=== PATIENT | female | born 2000 | race African-American/Black ===

== ENCOUNTER 2020-02-17 17:31 | Emergency (ER) | payer SELFPAY ==
[~2020-02-17] VITALS: Ht 162.6 cm; Wt 72.6 kg
[2020-02-17] MEDS ORDERED: diphenhdrAMINE HCL 50 MG/1 ML VL IV ONE (17:45)
[2020-02-17] MEDS ORDERED: methylPREDNISolone SOD SUCC 125 MG/2 ML VL IV ONE (17:45)
[2020-02-17] MEDS ORDERED: SODIUM CHLORIDE 0.9% 1,000 ML IV ONE (17:45)
[2020-02-17 19:01] VITALS: BP 125/75
== END 2020-02-17 20:42 | disposition home or self-care (01) ==
LOC: ER 17:31
DX: T78.40XA Allergy, unspecified, initial encounter (principal); Z91.013 Allergy to seafood; Z91.010 Allergy to peanuts; Z91.018 Allergy to other foods; X58.XXXA Exposure to other specified factors, initial encounter
CPT/HCPCS: 71045; 96361; 96374; 96375; 99284; J1200; J2930; J7030

== ENCOUNTER 2021-01-07 09:43 | Emergency (ER) | payer SELFPAY ==
[~2021-01-07] VITALS: Ht 162.6 cm; Wt 74.4 kg
[2021-01-07] MEDS ORDERED: ONDANSETRON HCL 4 MG/2 ML VIAL IV ONE (10:15)
[2021-01-07] MEDS ORDERED: SODIUM CHLORIDE 0.9% 1,000 ML IVB ONE (10:15)
[2021-01-07 11:00] LABS: Albumin 3.8 g/dL (3.4-5.0); Anion Gap 7 (5-15); Blood Alcohol < 3.0 mg/dL (0-5); Blood Urea Nitrogen 12 mg/dL (7-18); Calcium 8.9 mg/dL (8.5-10.1); Carbon Dioxide 20 mmol/L (21-32); Chloride 109 mmol/L (98-107); Glucose 110 mg/dL (74-106); Lipase 115 U/L (73-393); Potassium 3.9 mmol/L (3.5-5.1); Sodium 136 mmol/L (136-145)
[2021-01-07 11:02] LABS: Lactic Acid w/Reflex 2.1 mmol/L (0.4-2.0)
[2021-01-07 11:04] LABS: Alanine Aminotransferase 37 U/L (13-56); Alkaline Phosphatase 115 U/L (45-117); Amphetamine Screen, Urine NEGATIVE (NEGATIVE); Aspartate Aminotransferase 22 U/L (15-37); BUN/Creatinine Ratio 15.2; Barbiturate Scree,Urine NEGATIVE (NEGATIVE); Basophils # (auto) 0 10 ^3/uL (0-0.2); Basophils % (auto) 0.5 % (0.0-2.0); Benzodiazephine Screen, Urine NEGATIVE (NEGATIVE); Bilirubin, Total 0.5 mg/dL (0.2-1.0); Cannabinoid Screen, Urine POSITIVE (NEGATIVE); Cocaine Screen, Urine NEGATIVE (NEGATIVE); Eosinophils # (auto) 0 10 ^3/uL (0-0.8); Eosinophils % (auto) 0.7 % (0.0-7.0); GFR African American 118 mL/min; GFR Non-African American 98 mL/min; Hematocrit 42.8 % (36.0-46.0); Hemoglobin 14.2 g/dL (12.2-16.2); Lymphocytes # (auto) 1.2 10 ^3/uL (0.4-5.4); Lymphocytes % (auto) 19.1 % (10.0-50.0); Mean Corpuscular Hemoglobin 28.5 pg (28.0-32.0); Mean Corpuscular Hgb Conc. 33.2 g/dL (32.0-36.0); Mean Corpuscular Volume 85.8 fL (80.0-100.0); Monocytes # (auto) 0.3 10 ^3/uL (0-1.3); Monocytes % (auto) 4.7 % (0.0-12.0); Neutrophils # (auto) 4.7 10 ^3/uL (1.6-8.6); Phencyclidine Screen, Urine NEGATIVE (NEGATIVE); Red Blood Cells 4.98 10^6/uL (4.0-5.20); Red Cell Distribution Width 13.2 % (11.8-14.3); Total Protein 8.2 g/dL (6.4-8.2); White Blood Cell 6.3 10^3/uL (4.4-10.8)
[2021-01-07 11:11] LABS: Opiate Scree,Urine NEGATIVE (NEGATIVE)
[2021-01-07 11:21] LABS: Urine Bacteria NONE SEEN /hpf (None Seen); Urine Blood Negative /uL (Negative); Urine Mucus FEW (None Seen); Urine Specific Gravity 1.024 (1.001-1.035); Urine WBC 3 /hpf (0 - 5)
[2021-01-07] MEDS ORDERED: MORPHINE SULFATE INJECTION 2 MG/ML SYRG IV ONE (11:45)
[2021-01-07 12:19] VITALS: BP 110/68
[2021-01-07] MEDS ORDERED: ONDA-144 PO (13:08)
[2021-01-07] MEDS ORDERED: DICY10CA GT (13:08)
== END 2021-01-07 13:18 | disposition home or self-care (01) ==
LOC: ER 09:43
DX: K29.20 Alcoholic gastritis without bleeding (principal); J45.909 Unspecified asthma, uncomplicated; F12.10 Cannabis abuse, uncomplicated; Z91.018 Allergy to other foods
CPT/HCPCS: 36415; 74176; 80053; 80307; 80320; 81001; 81025; 83605; 83690; 85025; 96361; 96374; 96375; 99284; J2270; J2405

== ENCOUNTER 2023-03-10 17:33 | Emergency (ER) | payer MEDICAID ==
[~2023-03-10] VITALS: Ht 162.6 cm; Wt 87.2 kg
[~2023-03-10 17:33] MED LIST: DICY10CA GT; ONDA-144 PO
[2023-03-10 18:03] VITALS: BP 102/63; PULSE 73; RESP 18; O2SAT 97
[2023-03-10 19:29] LABS: Basophils # (auto) 0.2 10 ^3/uL (0-0.2); Basophils % (auto) 3.6 % (0.0-2.0); Eosinophils # (auto) 0.2 10 ^3/uL (0-0.8); Eosinophils % (auto) 3.4 % (0.0-7.0); Hematocrit 43.2 % (36.0-46.0); Hemoglobin 14.1 g/dL (12.2-16.2); Lymphocytes # (auto) 2.3 10 ^3/uL (0.4-5.4); Lymphocytes % (auto) 48.3 % (10.0-50.0); Mean Corpuscular Hemoglobin 28.5 pg (28.0-32.0); Mean Corpuscular Hgb Conc. 32.7 g/dL (32.0-36.0); Monocytes # (auto) 0.2 10 ^3/uL (0-1.3); Monocytes % (auto) 4.4 % (0.0-12.0); Neutrophils % (auto) 40.3 % (37.0-80.0); Nucleated Red Blood Cells % 0.1 %; Red Blood Cells 4.96 10^6/uL (4.0-5.20); Red Cell Distribution Width 13.7 % (11.8-14.3); White Blood Cell 4.8 10^3/uL (4.4-10.8)
[2023-03-10 19:40] LABS: Chloride 107 mmol/L (98-107); Sodium 140 mmol/L (136-145)
[2023-03-10 19:41] LABS: Calcium 9.9 mg/dL (8.5-10.1)
[2023-03-10 19:46] LABS: BUN/Creatinine Ratio 10.4 (10.0-20.0); Blood Urea Nitrogen 8 mg/dL (9-23); Glucose 86 mg/dL (74-106)
[2023-03-10 19:56] LABS: Anion Gap 8 (5-15); Carbon Dioxide 25 mmol/L (20-30)
[2023-03-10] MEDS ORDERED: PANT40TA2 PO (20:16)
[2023-03-10 21:19] LABS: Urine Epithelial Cast None Seen /hpf (<5)
[2023-03-10 21:40] LABS: Urine Bacteria NONE SEEN /hpf (None Seen); Urine Blood Negative /uL (Negative); Urine Clarity Clear (Clear); Urine Color Colorless (Yellow); Urine Protein, UAD Negative (Negative); Urine Specific Gravity 1.007 (1.001-1.035); Urine Urobilinogen Normal (Negative); Urine WBC 1 /hpf (0 - 5)
== END 2023-03-10 20:43 | disposition home or self-care (01) ==
LOC: ER 17:33
DX: K29.70 Gastritis, unspecified, without bleeding (principal); R10.2 Pelvic and perineal pain; J45.909 Unspecified asthma, uncomplicated; F12.10 Cannabis abuse, uncomplicated; Z91.02 Food additives allergy status; Z91.010 Allergy to peanuts
CPT/HCPCS: 36415; 80048; 81001; 83690; 84702; 85025

== ENCOUNTER 2023-04-29 22:19 | Emergency (ER) | payer MEDICAID ==
[~2023-04-29] VITALS: Ht 162.6 cm; Wt 175.0 kg
[2023-04-29 22:19] VITALS: BP 132/56; PULSE 94; RESP 20; O2SAT 96
[~2023-04-29 22:19] MED LIST changes: +PANT40TA2 PO
== END 2023-04-30 00:17 | disposition left against medical advice (07) ==
LOC: ER 22:19
DX: R10.12 Left upper quadrant pain (principal); Z53.21 Procedure and treatment not carried out due to patient leaving prior to being seen by health care provider

== ENCOUNTER 2023-07-13 08:34 | Inpatient (IN) | payer MEDICAID ==
[~2023-07-13] VITALS: Ht 162.6 cm; Wt 93.6 kg
[2023-07-13 09:23] LABS: Basophils # (auto) 0 10 ^3/uL (0-0.2); Basophils % (auto) 0.6 % (0.0-2.0); Eosinophils # (auto) 0.1 10 ^3/uL (0-0.8); Eosinophils % (auto) 2.8 % (0.0-7.0); Hematocrit 41.3 % (36.0-46.0); Hemoglobin 13.5 g/dL (12.2-16.2); Lymphocytes # (auto) 1.9 10 ^3/uL (0.4-5.4); Lymphocytes % (auto) 48.9 % (10.0-50.0); Mean Corpuscular Hemoglobin 28.9 pg (28.0-32.0); Mean Corpuscular Hgb Conc. 32.6 g/dL (32.0-36.0); Mean Corpuscular Volume 88.5 fL (80.0-100.0); Monocytes # (auto) 0.4 10 ^3/uL (0-1.3); Monocytes % (auto) 10.8 % (0.0-12.0); Neutrophils # (auto) 1.4 10 ^3/uL (1.6-8.6); Neutrophils % (auto) 36.9 % (37.0-80.0); Red Blood Cells 4.66 10^6/uL (4.0-5.20); Red Cell Distribution Width 13.8 % (11.8-14.3); White Blood Cell 3.8 10^3/uL (4.4-10.8)
[2023-07-13] MEDS: ONDANSETRON HCL 4 MG/2 ML VIAL IV ONE (09:36)
[2023-07-13] MEDS: SODIUM CHLORIDE 0.9% 1,000 ML IV ONE (09:36)
[2023-07-13 09:37] LABS: Urine Bacteria None Seen /hpf (None Seen)
[2023-07-13] MEDS: MORPHINE SULFATE 4 MG/ML SYR/VIAL IV ONE (09:40)
[2023-07-13 09:43] LABS: Urine Blood Negative /uL (Negative); Urine Clarity Clear (Clear); Urine Color Light-Yellow (Yellow); Urine Protein, UAD Negative (Negative); Urine Specific Gravity 1.021 (1.001-1.035); Urine Urobilinogen Normal (Negative); Urine WBC 1 /hpf (0 - 5); Urine pH 6.5 (5.0-9.0)
[2023-07-13 10:34] LABS: Alanine Aminotransferase 46 U/L (7-40); Albumin 4.6 g/dL (3.2-4.8); Alkaline Phosphatase 97 U/L (46-116); Anion Gap 5 (5-15); Aspartate Aminotransferase 28 U/L (13-40); BUN/Creatinine Ratio 9.2 (10.0-20.0); Bilirubin, Total 0.3 mg/dL (0.2-1.0); Blood Alcohol < 3.0 mg/dL (<10); Blood Urea Nitrogen 7 mg/dL (9-23); Calcium 9.4 mg/dL (8.5-10.1); Carbon Dioxide 26 mmol/L (20-30); Chloride 110 mmol/L (98-107); Glucose 115 mg/dL (74-106); Potassium 3.9 mmol/L (3.5-5.1); Sodium 141 mmol/L (136-145); Total Protein 7.1 g/dL (5.7-8.2)
[2023-07-13 10:45] LABS: Lipase 37 U/L (12-53)
[2023-07-13 13:00] VITALS: BP 106/65; PULSE 72; RESP 18; TEMP 97.7; O2SAT 96
[2023-07-13] MEDS: PANTOPRAZOLE 40 MG/10 ML VIAL INJ IV SCH (13:19)
[2023-07-13] MEDS: HYDROcodone-ACET 5/325MG TAB PO PRN (13:25)
[2023-07-13] MEDS: SODIUM CHLOR 0.9% PF (SALINE LOCK) 10ML VIAL/SYR IV SCH (14:00)
[2023-07-13] MEDS: ONDANSETRON HCL 4 MG/2 ML VIAL IV PRN (15:37)
[2023-07-13] MEDS: HYDROmorphone HCL 2 MG/ML VL/or syr IV PRN (15:40)
[2023-07-13 17:00] VITALS: BP 110/63; PULSE 60; RESP 18; TEMP 98.3; O2SAT 99
[2023-07-13] MEDS: LACTATED RINGER'S 1,000 ML IV ONE (19:47)
[2023-07-13 20:00] VITALS: BP 136/64; PULSE 61; RESP 18; TEMP 97.7; O2SAT 96
[2023-07-13 21:00] VITALS: BP 136/64; PULSE 61; RESP 18; TEMP 97.7; O2SAT 98
[2023-07-14] VITALS (8 sets, daily range): BP systolic 107–124; BP diastolic 62–74; PULSE 54–75; RESP 14–20; TEMP 97.8–98.9; O2SAT 94–100
[2023-07-14] MEDS: ENOXAPARIN SOD 40 MG/0.4 ML SYRINGE SC SCH (08:18)
[2023-07-14] MEDS: SODIUM CHLORIDE 0.9% 1,000 ML IV SCH (16:39)
[2023-07-15] VITALS (7 sets, daily range): BP systolic 116–125; BP diastolic 53–86; PULSE 55–80; RESP 17–20; TEMP 97.3–98.5; O2SAT 95–98
[2023-07-15 06:11] LABS: Alanine Aminotransferase 35 U/L (7-40); Albumin 4.1 g/dL (3.2-4.8); Alkaline Phosphatase 80 U/L (46-116); Anion Gap 6 (5-15); Aspartate Aminotransferase 19 U/L (13-40); Blood Urea Nitrogen 5 mg/dL (9-23); Calcium 9.4 mg/dL (8.7-10.4); Carbon Dioxide 27 mmol/L (20-30); Chloride 105 mmol/L (98-107); Glucose 93 mg/dL (74-106); Lipase 28 U/L (12-53); Potassium 3.4 mmol/L (3.5-5.1); Sodium 138 mmol/L (136-145)
[2023-07-15 06:12] LABS: Bilirubin, Total 1.1 mg/dL (0.2-1.0); Total Protein 6.6 g/dL (5.7-8.2)
[2023-07-15] MEDS: ACETAMINOPHEN 325 MG TAB PO PRN (21:04)
[2023-07-16 05:00] VITALS: BP 118/74; PULSE 91; RESP 18; TEMP 98.4; O2SAT 98
[2023-07-16 08:00] VITALS: PULSE 71; RESP 20; O2SAT 98
[2023-07-16 09:00] VITALS: BP 125/65; PULSE 60; RESP 18; TEMP 98.3; O2SAT 96
[2023-07-16] MEDS ORDERED: PANT40T PO (10:29)
[2023-07-16 13:00] VITALS: BP 132/71; PULSE 77; RESP 18; TEMP 98; O2SAT 95
[2023-07-16 14:44] VITALS: BP 132/71; PULSE 54; RESP 20; TEMP 98.1; O2SAT 100
== END 2023-07-16 15:45 | disposition home or self-care (01) | DRG 241 ==
LOC: ER 08:34 → OVERFLOW 11:45 → EAST 12:13
PROVIDERS: ADMIT Internal Medicine; ATTEND Family Medicine
DX: K29.20 Alcoholic gastritis without bleeding (principal); E66.9 Obesity, unspecified; F11.20 Opioid dependence, uncomplicated; J45.909 Unspecified asthma, uncomplicated; Z91.010 Allergy to peanuts; Z91.013 Allergy to seafood; Z68.35 Body mass index [BMI] 35.0-35.9, adult; Z79.899 Other long term (current) drug therapy; K86.1 Other chronic pancreatitis
CPT/HCPCS: 36415; 80053; 80320; 81001; 81025; 83036; 83690; 85025; 96361; 96374; 96375; C9113; G0378; J2405

== ENCOUNTER 2023-08-19 08:46 | Emergency (ER) | payer MEDICAID ==
[~2023-08-19] VITALS: Ht 162.6 cm; Wt 83.4 kg
[~2023-08-19 08:46] MED LIST changes: -DICY10CA GT; -ONDA-144 PO; +PANT40T PO; -PANT40TA2 PO
[2023-08-19 09:45] LABS: Urine Bacteria None Seen /hpf (None Seen)
[2023-08-19 09:54] LABS: Basophils # (auto) 0 10 ^3/uL (0-0.2); Basophils % (auto) 0.5 % (0.0-2.0); Eosinophils # (auto) 0.2 10 ^3/uL (0-0.8); Eosinophils % (auto) 3.5 % (0.0-7.0); Hematocrit 43.6 % (36.0-46.0); Hemoglobin 14.7 g/dL (12.2-16.2); Lymphocytes # (auto) 2.3 10 ^3/uL (0.4-5.4); Lymphocytes % (auto) 42.5 % (10.0-50.0); Mean Corpuscular Hemoglobin 29.4 pg (28.0-32.0); Mean Corpuscular Hgb Conc. 33.6 g/dL (32.0-36.0); Mean Corpuscular Volume 87.5 fL (80.0-100.0); Monocytes # (auto) 0.5 10 ^3/uL (0-1.3); Monocytes % (auto) 9.7 % (0.0-12.0); Neutrophils # (auto) 2.3 10 ^3/uL (1.6-8.6); Neutrophils % (auto) 43.8 % (37.0-80.0); Nucleated Red Blood Cells % 0.1 %; Red Blood Cells 4.99 10^6/uL (4.0-5.20); Red Cell Distribution Width 13.4 % (11.8-14.3); White Blood Cell 5.3 10^3/uL (4.4-10.8)
[2023-08-19 10:21] LABS: Urine Blood Negative /uL (Negative); Urine Clarity Clear (Clear); Urine Color Light-Yellow (Yellow); Urine Mucus FEW (None Seen); Urine Protein, UAD Negative (Negative); Urine Specific Gravity 1.018 (1.001-1.035); Urine Urobilinogen Normal (Negative); Urine WBC 1 /hpf (0 - 5); Urine pH 6.5 (5.0-9.0)
[2023-08-19 10:25] LABS: Alanine Aminotransferase 25 U/L (7-40); Albumin 4.5 g/dL (3.2-4.8); Alkaline Phosphatase 86 U/L (46-116); Anion Gap 4 (5-15); Aspartate Aminotransferase 9 U/L (13-40); Bilirubin, Total 0.4 mg/dL (0.2-1.0); Calcium 9.5 mg/dL (8.5-10.1); Carbon Dioxide 23 mmol/L (20-30); Chloride 108 mmol/L (98-107); Glucose 111 mg/dL (74-106); Potassium 3.6 mmol/L (3.5-5.1); Sodium 135 mmol/L (136-145)
[2023-08-19 10:26] LABS: Total Protein 7.1 g/dL (5.7-8.2)
[2023-08-19 10:33] LABS: BUN/Creatinine Ratio 7.4 (10.0-20.0); Blood Urea Nitrogen < 5 mg/dL (9-23)
[2023-08-19] MEDS: IOHEXOL 300 MG/ML 100ML BOTTLE IJ ONE (11:04)
[2023-08-19] MEDS: KETOROLAC TROMETH 30 MG/ML 1ML VIAL IV ONE (11:06)
[2023-08-19] MEDS: METOCLOPRAMIDE HCL 5MG/ml INJ 2ml VIAL IV ONE (11:06)
[2023-08-19] MEDS: SODIUM CHLORIDE 0.9% 1,000 ML IV ONE (11:07)
[2023-08-19] MEDS: LORazepam 2MG/ML-1ML VIAL IV ONE (11:25)
[2023-08-19 11:35] LABS: Magnesium 1.6 mg/dL (1.6-2.6)
[2023-08-19 15:36] VITALS: BP 136/88; PULSE 88; RESP 16; TEMP 98.7; O2SAT 100
== END 2023-08-19 15:37 | disposition home or self-care (01) ==
LOC: ER 08:46
DX: O26.891 Other specified pregnancy related conditions, first trimester (principal); R10.2 Pelvic and perineal pain; J45.909 Unspecified asthma, uncomplicated; F12.10 Cannabis abuse, uncomplicated; Z91.02 Food additives allergy status; Z91.010 Allergy to peanuts; Z91.013 Allergy to seafood; Z3A.01 Less than 8 weeks gestation of pregnancy; Z79.899 Other long term (current) drug therapy
CPT/HCPCS: 36415; 76801; 80053; 81001; 83690; 83735; 84702; 85025; 96361; 96374; 96375; 99285; J1885; J2060; J2765; J7030; Q9967

== ENCOUNTER 2023-10-26 17:52 | Emergency (ER) | payer MEDICAID ==
[~2023-10-26] VITALS: Ht 165.1 cm; Wt 84.7 kg
[2023-10-26 18:12] VITALS: BP 122/71; PULSE 94; RESP 17; O2SAT 99
[2023-10-26 18:42] LABS: Basophils # (auto) 0 10 ^3/uL (0-0.2); Basophils % (auto) 0.5 % (0.0-2.0); Eosinophils # (auto) 0.1 10 ^3/uL (0-0.8); Eosinophils % (auto) 1.5 % (0.0-7.0); Hematocrit 40.4 % (36.0-46.0); Hemoglobin 13.9 g/dL (12.2-16.2); Lymphocytes # (auto) 2.3 10 ^3/uL (0.4-5.4); Lymphocytes % (auto) 32.2 % (10.0-50.0); Mean Corpuscular Hgb Conc. 34.4 g/dL (32.0-36.0); Mean Corpuscular Volume 87.1 fL (80.0-100.0); Monocytes # (auto) 0.5 10 ^3/uL (0-1.3); Monocytes % (auto) 6.7 % (0.0-12.0); Neutrophils # (auto) 4.3 10 ^3/uL (1.6-8.6); Neutrophils % (auto) 59.1 % (37.0-80.0); Nucleated Red Blood Cells % 0.1 %; Platelet Count (auto) 202 10^3/uL (140-450); Red Blood Cells 4.64 10^6/uL (4.0-5.20); Red Cell Distribution Width 13.4 % (11.8-14.3); White Blood Cell 7.2 10^3/uL (4.4-10.8)
[2023-10-26 19:37] LABS: Urine Bacteria FEW /hpf (None Seen); Urine Blood Negative /uL (Negative); Urine Clarity Clear (Clear); Urine Color Yellow (Yellow); Urine Mucus MODERATE (None Seen); Urine Protein, UAD 1+ (Negative); Urine Specific Gravity 1.032 (1.001-1.035); Urine Urobilinogen Normal (Negative); Urine WBC 2 /hpf (0 - 5)
== END 2023-10-26 21:17 | disposition home or self-care (01) ==
LOC: ER 17:52
DX: O21.8 Other vomiting complicating pregnancy (principal); R10.2 Pelvic and perineal pain; R42 Dizziness and giddiness; R53.1 Weakness; Z3A.17 17 weeks gestation of pregnancy; Z91.02 Food additives allergy status; Z91.010 Allergy to peanuts
CPT/HCPCS: 36415; 76805; 81001; 84702; 85025

== ENCOUNTER 2024-01-18 18:33 | Emergency (ER) | payer MEDICAID ==
[~2024-01-18] VITALS: Ht 162.6 cm; Wt 80.0 kg
[2024-01-18 18:51] VITALS: BP 126/77; PULSE 127; RESP 22; TEMP 98.1; O2SAT 96
[2024-01-18] MEDS: ONDANSETRON HCL 4 MG/2 ML VIAL IV ONE (20:02)
[2024-01-18] MEDS: LACTATED RINGER'S 1,000 ML IV ONE (20:03)
[2024-01-18] MEDS: ACETAMINOPHEN 500 MG TAB PO ONE (20:27)
[2024-01-18 20:46] LABS: COVID19 ANTIGEN SOFIA FIA NEGATIVE (NEGATIVE)
[2024-01-18 21:00] LABS: Rapid Influenza A Negative (Negative); Rapid Influenza B Negative (Negative)
[2024-01-18 22:04] LABS: Vaginal Trichomonas Not Present
[2024-01-18 22:05] LABS: Vaginal Bacteria Rare; Vaginal Clue Cells None Seen; Vaginal Epithelial Cells Rare
--- NOTE | 2024-01-18 22:11 | DVH ---
INDICATION: abd pain TECHNIQUE: Multiple real-time sonographic images of the abdomen were obtained. COMPARISON: None FINDINGS: . The liver measures 14.34 cm. No intrahepatic biliary ductal dilatation is noted. The gallbladder wall measures 0.31 cm and is unremarkable. No gallstones or sludge is seen. The co mmon duct measures 0.42 cm and is unremarkable. No pericholecystic fluid is noted. The right kidney measures 12.03 cm. No hydronephrosis. The visualized portions of the IVC and aorta are grossly unremarkable. IMPRESSION: 1. Normal exam of the abdomen. 2. Pancreas poorly seen 3. Gallbladder wall on common bile duct within normal limits. 4. No cholelithiasis.
--- NOTE | 2024-01-18 22:18 | DVH ---
EXAM: US OB ULTRASOUND COMP GTR 14 WKS HISTORY: contractions, labor TECHNIQUE: Multiple real-time grayscale images of the gravid uterus with duplex Doppler color flow an d M-mode spectral analysis. COMPARISON: US OB ULTRASOUND COMP GTR 14 WKS on DOS: 10/26/23, US OB ULTRASOUND COMP LESS 14WKS on DOS: 08/19/23 FINDINGS: IUP single live fetus at 27 weeks, 0 days average ultrasound age (AUA) based on composite averages of the BPD, head circumference, abdominal circumference and femur length MEASUREMENTS: BPD: 6.5 cm GA: 26 w 3 d HC: 25.4 cm GA: 27 w 4 d AC: 21.8 cm GA: 26 w 2 d FL: 5.1 cm GA: 27 w 3 d Estimated weight 979 grams heart rate 172 beats per minute GARY 13.5 cm Breech Presentation No placenta without previa or abruption Cervix closed measuring 3.4 cm IMPRESSION: 1. IUP single live fetus at 27 weeks, 0 days AUA corresponding to an ROLAN of April 18, 2024. 2. No previa or abruption seen . Good movement. No abnormality detected.
--- NOTE | 2024-01-19 09:44 | DVHDS2 ---
Physician Discharge Progress N Final Diagnosis: cramping, SOB Secondary Diagnosis: IUP at 28w 4d breech presentation Abdominal pain - resolved h/o Asthma h/o pancreatitis H/o gastritis h/o C- Sectio x1 Other Interventions Other Interventions 23yo G3, [address], reports EDC of 04/07/23, EGA 28w 4d. Reports abdominal cramping and SOB, was at [facility] 6 hours ago, given a breathing treatment. Not satisfied with the care she received, hence she came here. Has h/o Asthma. Gastritis and pancreatitis. G#1 , G32 primary C- section for Breech presentation -failed ECV. Has not been feeling well x 3days, nausea and vomiting, last ate on 01/16/24, very light , vomited what she tried to eat yesterday. Also reports feeling dizzy, passed out in the sore yesterday but didn't go to hospital. Reports movements only feel like flutters, no LOF, MARTINEZ or vision changes O: PE:A&O x3, Well groomed Febrile, , other VSS Heart: Normal sound Lungs: Very minimal expiratory wheeze Abdomen: Gravid non- tender to palpation, fundal ht < given date: SSE: white discharge SVE: Cervix close A: at 28w 4d by given LMP Abdominal pain Asthma h/o pancreatitis H/o gastritis h/o C- Sectio x1 P: Pelvic exam, Wet mount OB & Abd US IV hydration Ondansetron IV for nausea Acetaminophen Covid and Influenza testing Re-assessment: S: Patient reports she feels much better O: afebrile Lungs CTA Wet mount negative Abdominal US WNL; limited view of pancreas OB US: AUA 27w breech presentation, cervix close, 3.4cm long. No placenta previa or abruption Covid & Influenza testing Neg FHR baseline 155bpm with accelerations, no decl, no contraction noted or palpated A: IUP at 28w 4d breech presentation Abdominal pain - resolved h/o Asthma h/o pancreatitis H/o gastritis h/o C- Section x1 P: Discharge home Patient to f/u with her OB doctor w/in 3days 2rd trimester emergency signs and symptoms & FMC reviewed Condition on Discharge: Stable Disposition: Home Discharge Instructions: Diet: Regular Activity: No Restrictions, As Tolerated Activity comment: balance activities with resst periods Follow Up/Referral: Parient to follow up with her OB doctore w/in 3days Medications: none Follow Up Care: Discharge Statement: "Patient was advised to return to the ER or call 911 if any headaches, dizziness, shortness of breath, chest pain, abdominal pain, bleeding, fevers, or worsening of medical condition. Patient was counseled about treatment plan, medications, possible side effects, patientverbalized understanding. All questions were answered to the best of my ability. This discharge took greater then 30 minutes in planning, reviewing documentation, counseling the patient, and discussing with other team members." ALEXA MURRIETA CNM Jan 19, 2024 09:44
== END 2024-01-19 00:18 | disposition home or self-care (01) ==
LOC: ER 18:33 → LDRP 19:02
PROVIDERS: ADMIT Obstetrics & Gynecology; ATTEND Obstetrics & Gynecology
DX: O99.613 Diseases of the digestive system complicating pregnancy, third trimester (principal); K29.70 Gastritis, unspecified, without bleeding; K85.90 Acute pancreatitis without necrosis or infection, unspecified; O32.1XX0 Maternal care for breech presentation, not applicable or unspecified; O99.513 Diseases of the respiratory system complicating pregnancy, third trimester; J45.909 Unspecified asthma, uncomplicated; R42 Dizziness and giddiness; Z3A.28 28 weeks gestation of pregnancy; Z79.899 Other long term (current) drug therapy; Z98.890 Other specified postprocedural states; Z20.822 Contact with and (suspected) exposure to COVID-19
CPT/HCPCS: 36415; 59025; 76705; 76805; 81002; 87210; 87426; 87804; 94760; 96361; 96374; G0378; J2405; 96360

== ENCOUNTER 2024-01-29 11:01 | Emergency (ER) | payer MEDICAID ==
[~2024-01-29] VITALS: Ht 162.6 cm; Wt 82.0 kg
[2024-01-29 13:38] LABS: Basophils # (auto) 0 10 ^3/uL (0-0.2); Basophils % (auto) 0.1 % (0.0-2.0); Eosinophils # (auto) 0 10 ^3/uL (0-0.8); Eosinophils % (auto) 0.4 % (0.0-7.0); Hematocrit 42.4 % (36.0-46.0); Hemoglobin 14.3 g/dL (12.2-16.2); Lymphocytes # (auto) 1.8 10 ^3/uL (0.4-5.4); Lymphocytes % (auto) 21.5 % (10.0-50.0); Mean Corpuscular Hemoglobin 29.5 pg (28.0-32.0); Mean Corpuscular Hgb Conc. 33.8 g/dL (32.0-36.0); Mean Corpuscular Volume 87.2 fL (80.0-100.0); Monocytes # (auto) 0.8 10 ^3/uL (0-1.3); Monocytes % (auto) 10.2 % (0.0-12.0); Neutrophils # (auto) 5.6 10 ^3/uL (1.6-8.6); Neutrophils % (auto) 67.8 % (37.0-80.0); Nucleated Red Blood Cells % 0.1 %; Platelet Count (auto) 227 10^3/uL (140-450); Red Blood Cells 4.86 10^6/uL (4.0-5.20); Red Cell Distribution Width 13.4 % (11.8-14.3); White Blood Cell 8.2 10^3/uL (4.4-10.8)
[2024-01-29 13:53] LABS: Albumin 4.2 g/dL (3.2-4.8); Anion Gap 13 (5-15); Aspartate Aminotransferase 33 U/L (13-40); BUN/Creatinine Ratio 10.3 (10.0-20.0); Calcium 9.7 mg/dL (8.7-10.4); Carbon Dioxide 22 mmol/L (20-31); Chloride 106 mmol/L (98-107); Glucose 81 mg/dL (74-106); Lipase 27 U/L (12-53); Potassium 3.9 mmol/L (3.5-5.1); Sodium 141 mmol/L (136-145); Total Protein 6.6 g/dL (5.7-8.2)
[2024-01-29 14:06] LABS: Urine Bacteria FEW /hpf (None Seen); Urine Blood Negative /uL (Negative); Urine Clarity Clear (Clear); Urine Color Yellow (Yellow); Urine Mucus FEW (None Seen); Urine Protein, UAD 1+ (Negative); Urine Urobilinogen 8 mg/dL (Negative); Urine WBC 3 /hpf (0 - 5)
[2024-01-29 14:06] LABS: Alanine Aminotransferase 109 U/L (7-40); Alkaline Phosphatase 132 U/L (46-116); Blood Urea Nitrogen 6 mg/dL (9-23)
[2024-01-29] MEDS: SODIUM CHLORIDE 0.9% 500 ML IV ONE (14:19)
[2024-01-29] MEDS: ONDANSETRON HCL 4 MG/2 ML VIAL IV ONE (14:19)
[2024-01-29] MEDS: METOCLOPRAMIDE HCL 5MG/ml INJ 2ml VIAL IV ONE (15:18)
--- NOTE | 2024-01-29 15:42 | ED.PDOC ---
History of Present Illness HPI Comments This is a 23-year-old female who comes in with chief complaint of nausea and vomiting with some slightly elevated liver enzymes. The patient went to [facility] emergency department's last night and states that she was then discharged The patient states that she is also trying to find a new OBGYN. The patient was approximately 27 weeks so she was sent to labor and delivery and was then she cleared from there. The patient was still having some vomiting. The patient was no other complaints at this time. Chief Complaint: Abdominal Pain Time Seen by MD: 11:18 Primary Care Provider: UNKNOWN Reviewed Notes: Nurses Notes, Medications, Allergies (Allergies listed above) Allergies: Coded Allergies: Prochlorperazine (Verified Allergy, Intermediate, 01/29/24) Banana (Verified Allergy, Unknown, 07/18/20) Latex (Verified Allergy, Unknown, 01/29/24) Peanut Oil (Verified Allergy, Unknown, 07/18/20) Uncoded Allergies: SEAFOOD (Allergy, Unknown, 02/17/20) WHEAT (Allergy, Unknown, 02/17/20) Home Meds Active Scripts Metoclopramide Hcl (Reglan) 5 Mg Tab, 5 MG PO Q8HP PRN for 7 Days, #21 TAB Prov:KANDY COBURN MD 01/29/24 Pantoprazole Sodium Sesquihydr (Pantoprazole Sodium) 40 Mg Tab, 40 MG PO BID, #30 TAB Prov:GINA BARRAZA MD 07/16/23 Information Source: Patient Mode of Arrival: Ambulatory Severity: Mild Timing: Days Duration: Since onset Prehospital treatment: None Associated signs and symptoms Nausea and vomiting with some generalized weakness Past Medical History PAST MEDICAL HISTORY: Asthma Past Medical History (Other): Pancreatitis Surgical History: [employer] History: No Pertinent [employer] History Family History Family History: Reviewed,noncontributory to illness Social History Smoker: Non-Smoker Alcohol: Occasionally Drugs: Marijuana Lives In: Home Constitutional: denies: chills, diaphoresis, fatigue, fever, malaise, sweats, weakness, others EENTM: denies: blurred vision, double vision, ear bleeding, ear discharge, ear drainage, ear pain, ear ringing, eye pain, eye redness, hearing loss, mouth pain, mouth swelling, nasal discharge, nose bleeding, nose congestion, nose pain, photophobia, tearing, throat pain, throat swelling, voice changes, others Respiratory: denies: cough, hemoptysis, orthopnea, SOB at rest, shortness of breath, SOB with excertion, stridor, wheezing, others Cardiovascular: denies: chest pain, dizzy spells, diaphoresis, Dyspnea on exertion, edema, irregular heart beat, left arm pain, lightheadedness, palpitations, PND, syncope, others Gastrointestinal: reports: nausea, vomiting; denies: abdomen distended, abdominal pain, blood streaked bowels, constipated, diarrhea, dysphagia, difficulty swallowing, hematemesis, melena, poor appetite, poor fluid intake, rectal bleeding, rectal pain, others Genitourinary: reports: ; denies: abnormal vagina bleeding, burning, dyspareunia, dysuria, flank pain, frequency, hematuria, incontinence, pain, vagina discharge, urgency, others Neurological: denies: dizziness, fainting, headache, left sided numbness, left sided weakness, numbness, paresthesia, pre-existing deficit, right sided numbness, right sided weakness, seizure, speech problems, tingling, tremors, weakness, others Musculoskeletal: denies: back pain, gout, joint pain, joint swelling, muscle pain, muscle stiffness, neck pain, others Integumetry: denies: bruises, change in color, change in hair/nails, dryness, laceration, lesions, lumps, rash, wounds, others Allergic/Immunocompromised: denies: Difficulty Healing, Frequent Infections, Hives, Itching, others Hematologic/Lymphatic: denies: anemia, blood clots, easy bleeding, easy bruising, swollen glands, others Endocrine: denies: excessive hunger, excessive sweating, excessive thirst, excessive urination, flushing, intolerance to cold, intolerance to heat, unexplained weight gain, unexplained weight loss, others Psychiatric: denies: anxiety, bipolar disorder, depression, hopeless, panic disorder, schizophrenia, sleepless, suicidal, others Physical Exam General Appearance: No Apparent Distress HEENT: Normal ENT Inspection, Pharynx Normal, TMs Normal Neck: Full Range of Motion, Non-Tender, Normal, Normal Inspection Respiratory: Chest Non-Tender, Lungs Clear, No Accessory Muscle Use, No Respiratory Distress, Normal Breath Sounds Cardiovascular: No Edema, No JVD, No Murmur, No Gallop, Normal Peripheral Pulse s, Regular Rate/Rhythm Breast Exam: Deferred Gastrointestinal: No Organomegaly, Non Tender, No Pulsatile Mass, Normal Bowel Sounds, Soft Genitalia: Deferred Pelvic: Deferred Rectal: Deferred Extremities: No calf tenderness, Normal capillary refill, Normal inspection, Normal range of motion, Non-tender, No pedal edema Musculoskeletal : Apperance: Normal Neurologic: Alert, potato chip maker II-XII nml as Tested, No Motor Deficits, Normal Affect, Normal Mood, No Sensory Deficits Cerebellar Function: Normal Reflexes: Normal Skin: Dry, Normal Color, Warm Lymphatic: No Adenopathy Was a procedure done? Was a procedure done?: No Differential Dx Considerations may include: Hyperemesis gravidarum, marijuana use X-Ray, Labs, Meds, VS Vital Signs Date Time Temp Pulse Resp B/P (MAP) Pulse Ox O2 Delivery O2 Flow Rate FiO2 01/29/24 14:21 97.7 91 17 90/69 (76) 97 97.7 01/29/24 14:21 91 17 97 Room Air 01/29/24 11:27 97.7 91 18 132/85 (101) 97 97.7 01/29/24 11:27 97.7 91 18 132/85 (101) 97 Lab Test 01/29/24 13:48 01/29/24 13:27 Range/Units Urine Color Yellow Yellow Urine Clarity Clear Clear Urine pH 6.0 5.0-9.0 Urine Specific [place] 1.030 1.001-1.035 Urine Protein 1+ H Negative Urine Ketones 4+ H Negative Urine Blood Negative Negative /uL Urine Nitrite Negative Negative Urine Bilirubin Negative Negative Urine Urobilinogen 8 H Negative mg/dL Urine Leukocyte Esterase Negative Negative /uL Urine RBC 1 0 - 4 /hpf Urine WBC 3 0 - 5 /hpf Urine Squamous Epithelial Cells Few <5 /hpf Urine Bacteria Few H None Seen /hpf Urine Mucus Few None Seen Urine Glucose Normal Normal mg/dL White Blood Count 8.2 4.4-10.8 10^3/uL Red Blood Count 4.86 4.0-5.20 10^6/uL Hemoglobin 14.3 12.2-16.2 g/dL Hematocrit 42.4 36.0-46.0 % Mean Corpuscular Volume 87.2 80.0-100.0 fL Mean Corpuscular Hemoglobin 29.5 28.0-32.0 pg Mean Corpuscular Hemoglobin Concent 33.8 32.0-36.0 g/dL Red Cell Distribution Width 13.4 11.8-14.3 % Platelet Count 227 140-450 10^3/uL Mean Platelet Volume 8.0 6.9-10.8 fL Neutrophils (%) (Auto) 67.8 37.0-80.0 % Lymphocytes (%) (Auto) 21.5 10.0-50.0 % Monocytes (%) (Auto) 10.2 0.0-12.0 % Eosinophils (%) (Auto) 0.4 0.0-7.0 % Basophils (%) (Auto) 0.1 0.0-2.0 % Neutrophils # (Auto) 5.6 1.6-8.6 10 ^3/uL Lymphocytes # (Auto) 1.8 0.4-5.4 10 ^3/uL Monocytes # (Auto) 0.8 0-1.3 10 ^3/uL Eosinophils # (Auto) 0 0-0.8 10 ^3/uL Basophils # (Auto) 0 0-0.2 10 ^3/uL Nucleated Red Blood Cells 0.1 % Sodium Level 141 136-145 mmol/L Potassium Level 3.9 3.5-5.1 mmol/L Chloride Level 106 98-107 mmol/L Carbon Dioxide Level 22 20-31 mmol/L Anion Gap 13 5-15 Blood Urea Nitrogen 6 L 9-23 mg/dL Creatinine 0.58 0.550-1.02 mg/dL Glomerular Filtration Rate Calc 130 >90 mL/min BUN/Creatinine Ratio 10.3 10.0-20.0 Serum Glucose 81 74-106 mg/dL Calcium Level 9.7 8.7-10.4 mg/dL Total Bilirubin 1.0 0.2-1.0 mg/dL Aspartate Amino Transferase (AST) 33 13-40 U/L Alanine Aminotransferase (ALT) 109 H 7-40 U/L Alkaline Phosphatase 132 H 46-116 U/L Total Protein 6.6 5.7-8.2 g/dL Albumin 4.2 3.2-4.8 g/dL Lipase 27 12-53 U/L Current Medications Medications (Trade) Dose Ordered Sig/Agata Route Start Time Stop Time Status Last Admin Ondansetron HCl (Zofran) 4 mg ONCE ONCE IV 01/29/24 13:30 01/29/24 13:31 DC 01/29/24 14:19 Sodium Chloride 500 ml @ 500 mls/hr Q1H ONCE IV 01/29/24 14:30 01/29/24 15:29 DC 01/29/24 14:19 Metoclopramide HCl (Reglan Injection) 10 mg ONCE ONCE IV 01/29/24 15:15 01/29/24 15:16 DC 01/29/24 15:18 The CBC is within normal limits The chemistry panel is within normal limits The IV Hep-Lock was established The patient was given normal saline at a 500 cc bolus The patient was given Zofran 4 mg IV push for the nausea The patient stated that it did not work so was given Reglan 10 mg IV push The patient was already been cleared from labor and delivery At this time, the patient was being discharged The patient will follow up with her OBGYN. Time of 1ST Reevaluation: 16:30 Reevaluation 1ST: Improved Patient Education/Counseling: Diagnosis, Treatment, Prognosis, Need For Follow Up Family Education/Counseling: No Family Present Departure 1 Departure Time of Disposition: 16:30 Impression: Primary Impression: Hyperemesis gravidarum Disposition: 01 HOME / SELF CARE / HOMELESS Condition: Fair e-Prescriptions Metoclopramide Hcl (Reglan) 5 Mg Tab 5 MG PO Q8HP PRN for 7 Days, #21 TAB Prov: KANDY COBURN MD 01/29/24 Discharged With: Self Critical Care Note Critical Care Time?: No Stability Stability form required: No Heart Score Heart Score: Heart Score Response (Comments) Value History N/A 0 EKG N/A 0 Age N/A 0 Risk Factors N/A 0 Troponin N/A 0 Total 0 KANDY COBURN MD Jan 29, 2024 15:42
[2024-01-29] MEDS ORDERED: METO5TAB67 PO (16:28)
[2024-01-29 16:54] VITALS: BP 138/69; PULSE 90; RESP 18; TEMP 99.1; O2SAT 97
== END 2024-01-29 17:17 | disposition home or self-care (01) ==
LOC: ER 11:01
DX: O21.0 Mild hyperemesis gravidarum (principal); O99.512 Diseases of the respiratory system complicating pregnancy, second trimester; J45.909 Unspecified asthma, uncomplicated; F12.10 Cannabis abuse, uncomplicated; Z3A.27 27 weeks gestation of pregnancy; Z88.6 Allergy status to analgesic agent; Z91.02 Food additives allergy status; Z91.040 Latex allergy status; Z91.010 Allergy to peanuts; Z91.013 Allergy to seafood
CPT/HCPCS: 36415; 80053; 81001; 83690; 85025; 96361; 96374; 96375; 99284; J2405; J2765; J7030

== ENCOUNTER 2024-01-29 11:36 | Observation (INO) | payer MEDICAID ==
[2024-01-29] MEDS ORDERED: METO5TAB67 PO (16:28)
--- NOTE | 2024-01-29 21:11 | DVHDS2 ---
Physician Discharge Progress N Final Diagnosis: n,v,dehydration Operations or Procedures: Operations or Procedures nst,sono Condition on Discharge: Good Disposition: Home Discharge Instructions: Diet: Regular Activity: Light activity Medications: na Follow Up Care: Specialist: 2d Discharge Statement: "Patient was advised to return to the ER or call 911 if any headaches, diz ziness, shortness of breath, chest pain, abdominal pain, bleeding, fevers, or worsening of medical condition. Patient was counseled about treatment plan, medications, possible side effects, patientverbalized understanding. All questions were answered to the best of my ability. This discharge took greater then 30 minutes in planning, reviewing documentation, counseling the patient, and discussing with other team members." RUBEN MARIN DO Jan 29, 2024 21:11
== END 2024-01-29 13:10 | disposition home or self-care (01) ==
LOC: UNDOADMOB 11:36 → LDRP 11:36
PROVIDERS: ADMIT Obstetrics & Gynecology; ATTEND Obstetrics & Gynecology
DX: O21.2 Late vomiting of pregnancy (principal); O26.893 Other specified pregnancy related conditions, third trimester; R10.11 Right upper quadrant pain; E86.0 Dehydration; Z98.890 Other specified postprocedural states; Z79.899 Other long term (current) drug therapy; Z3A.29 29 weeks gestation of pregnancy; Z91.040 Latex allergy status; Z91.010 Allergy to peanuts; Z91.018 Allergy to other foods; Z91.013 Allergy to seafood
CPT/HCPCS: 59025; 81002; 94760; G0378